=== PATIENT | female | born 1970 | race Caucasian/White ===

== ENCOUNTER → 2019-07-27 10:30 | Outpatient (BNVA) | payer SELFPAY | PROVIDERS: Visit Provider Nurse Practitioner Family | DX: Z00.00 Encounter for general adult medical examination without abnormal findings (principal); E03.9 Hypothyroidism, unspecified; Z13.6 Encounter for screening for cardiovascular disorders | CPT/HCPCS: 80053; 80061; 84439; 84443; 84481; 85025 ==

== ENCOUNTER 2019-08-24 09:18 | Day surgery (SDC) | payer MEDICAID, SELFPAY ==
[2019-08-22 11:32] VITALS: BMI 30.4
[2019-08-24 09:37] VITALS: BP 122/89; PULSE 81; RESP 18; TEMP 36.6; O2SAT 99
[2019-08-24] MEDS: sodium chloride 0.9% 1,000 ML 30 ML IV (09:47)
--- NOTE | 2019-08-24 10:03 | P.ANESASSM_ITS ---
Pre-Anesthetic Assessment Pre-Anesthetic Assessment: Height/Weight: Height 1.7 m Weight 87.997 kg Temp Pulse Resp BP Pulse Ox 97.8 F 81 18 122/89 99 08/24/19 09:37 08/24/19 09:37 08/24/19 09:37 08/24/19 09:37 08/24/19 09:37 Preop Diagnosis: Constipation Proposed Procedure: Operation Date: 08/24/19 10:30 Proposed Procedures p Colonoscopy 17526 K59.00(Not Applicable) - Shahriar Kapadia MD Was Beta Brenda taken within 24 hours: N/A Last intake: Intake Last Liquid Date 08/23/19 Last Liquid Time 20:00 Last Solid Date 08/22/19 Last Solid Time 18:00 Social: Social History: Tobacco Exam: Pre-Anes Outpt Exam: alert, oriented x 3, clear to auscultation bilaterally and regular rate & rhythm Airway: Submandibular: WNL Cervical ROM: WNL MP: 1 History/ROS: No significant history except as noted Pulmonary: Pulmonary: None reported CV/HEM: CV/HEM: None reported : : None reported Hepatic: Hepatic: None reported GI: GI: GERD Comments: Hemorrhoids Metabolic: Metabolic: Thyroid Musc/skel: Musc/skel: None reported Neuropsych: Neuropsych: None reported Anesthetic Plan: ASA status: 2 Anesthesia: MAC Meds/Allergies Current Medications: Current Medications Generic Name Dose Route Start Last Admin Trade Name Freq PRN Reason Stop Dose Admin Sodium Chloride 1,000 mls @ 30 ml s/hr 08/24/19 09:45 08/24/19 09:47 Sodium Chloride 0.9% IV 08/25/19 09:44 30 mls/hr .Q24H DARSHANA Administration PFSH Anesthesia PFSH: Medical History Hypothyroidism Family History Mother Diabetes Father Stroke Other Cancer Denies family history of Anesthesia complication Bleeding disorder Social History Smoking and tobacco status: never smoked Alcohol intake: current Alcohol intake frequency: holidays/special occasions only Adopted: No Caregiver/support person: Yes Lives independently: Yes Household members: children Housing: House Marital status: / service: No Current occupational status: previously employed Pets and animals: No History of recent travel: No Current gender identity: Female Caitlin/Gnosticist: Scientologist Financial difficulty paying for basics: Not Applicable Data Anesthesia Cardiac Studies: No Data to Display
--- NOTE | 2019-08-24 10:11 | W.PM.OPSUD ---
Surgery/Procedure H&P Update DATE OF PROCEDURE: August 24, 2019 DATE H&P PERFORMED: 08/11/19 H&P UPDATE INFORMATION: I have reviewed H&P completed within last 30 days, I have examined patient prior to procedure and No changes to prior documentation PREOP DIAGNOSIS: Constipation PRIMARY INDICATION FOR PROCEDURE: The same PLANNED PROCEDURE: Operation Date: 08/24/19 10:30 Proposed Procedures p Colonoscopy 62070 K59.00(Not Applicable) - Shahriar Kapadia MD
[2019-08-24 10:56] VITALS: BP 110/77; PULSE 84; RESP 16; TEMP 36.2; O2SAT 100
[2019-08-24 11:11] VITALS: BP 113/69; PULSE 72; RESP 18; TEMP 36.4; O2SAT 99
== END 2019-08-24 11:30 | disposition home or self-care (01) ==
PROVIDERS: Visit Provider Surgery
PROC: 0DJD8ZZ Inspection of Lower Intestinal Tract, Via Natural or Artificial Opening Endoscopic (ICD-10-PCS; CPT 45378; principal; 2019-08-24 10:30)
DX: K59.09 Other constipation (principal); E03.9 Hypothyroidism, unspecified; K21.9 Gastro-esophageal reflux disease without esophagitis; Z83.3 Family history of diabetes mellitus; Z82.3 Family history of stroke
CPT/HCPCS: 12345; 45378; J2704; J7030

== ENCOUNTER → 2019-12-22 00:01 | Outpatient (BNVA) | payer SELFPAY | PROVIDERS: Visit Provider Family Medicine | DX: E03.9 Hypothyroidism, unspecified (principal); L71.9 Rosacea, unspecified; Z71.89 Other specified counseling | CPT/HCPCS: 84443 ==

== ENCOUNTER → 2020-08-28 10:16 | Outpatient (BNVA) | payer MEDICAID, SELFPAY | PROVIDERS: Visit Provider Family Medicine | DX: E03.9 Hypothyroidism, unspecified (principal) | CPT/HCPCS: 80053; 84443; 85025 ==

== ENCOUNTER → 2021-08-30 12:10 | Outpatient (BNVA) | payer OTHER, SELFPAY | PROVIDERS: PCP Family Medicine; Visit Provider Family Medicine | DX: E03.9 Hypothyroidism, unspecified (principal); M62.838 Other muscle spasm; E07.9 Disorder of thyroid, unspecified | CPT/HCPCS: 80053; 83735; 84443 ==

== ENCOUNTER → 2021-12-05 13:10 | Outpatient (BNVA) | payer OTHER, SELFPAY | PROVIDERS: PCP Family Medicine; Visit Provider Nurse Practitioner Family | DX: R03.0 Elevated blood-pressure reading, without diagnosis of hypertension (principal); E03.9 Hypothyroidism, unspecified | CPT/HCPCS: 80053; 80061; 82607; 83735; 84439; 84443; 84481; 85025; 85651; 86038; 86140; 86200; 86376; 86431 ==

== ENCOUNTER 2021-12-25 09:24 | Emergency (ER) | payer OTHER, SELFPAY ==
[2021-12-25 09:30] VITALS: BP 162/106; PULSE 70; RESP 18; TEMP 36.6; O2SAT 98; BMI 29.3
--- NOTE | 2021-12-25 09:41 | PC.NURSE ---
pt reports she took synthroid and then began having hives and facial swelling. pt denies dyspnea. pt respirations even and unlabored, pt's left side of her face noted to be swollen. No abnormal airway noises. Self maintained, patent airway. face appears flushed. able to speak in complete sentences without difficulty. pt reports she took 25mg Benadryl on way to ER.
--- NOTE | 2021-12-25 09:48 | W.ED.ALLEREA ---
HPI - Allergic Reaction General: Chief complaint: Allergic Reaction Stated complaint: allergic reaction Time Seen by Provider: 12/25/21 09:26 Source: patient Mode of arrival: ambulatory History of Present Illness: HPI narrative: 51 yo female presents emergency room with swelling in her upper lip and on her face particularly on the left side. She denies any difficulty breathing she did take some oral Benadryl prior to arrival. She had just taken a first dose of levothyroxine and then this began overnight. She not had any difficulty breathing or swallowing or speaking. MD complaint: allergic reaction Onset (ago): hour(s) Exposure: medication Known history of allergy to: [place] Thyroid Associated symptoms: Reports facial swelling, itching and lip swelling; Deny abdominal pain, difficulty breathing, dysphagia, dizziness, hoarseness, nausea, rash, tongue swelling or vomiting Severity: moderate Treatment prior to arrival: benadryl Previous Allergic Reaction History: none Review of Systems Const: Denies: fever(s), chills, body aches, change in appetite, fatigue or malaise ENMT: Denies: hoarseness Card: Denies: chest pain, edema, dyspnea on exertion or orthopnea Resp: Denies: dyspnea, productive cough or non-productive cough GI: Denies: abdominal pain, nausea, vomiting or dysphagia : Denies: flank pain, difficulty voiding, dysuria, urinary frequency or urinary urgency Skin/Breast: Denies: rash or pruritus Neuro: Denies: dizziness All/Imm: Reports: facial swelling; Denies: tongue swelling PFSH ED PFSH: Medical History Hypothyroidism Hypothyroidism Family History Mother Diabetes Father Stroke Other Cancer Denies family history of Anesthesia complication Bleeding disorder Social History Smoking and tobacco status: never smoked Alcohol intake: current Alcohol intake frequency: holidays/special occasions only Adopted: No Caregiver/support person: Yes Lives independently: Yes Household members: children Housing: House Marital status: / service: No Current occupational status: previously employed Pets and animals: No History of recent travel: No Current gender identity: Female Caitlin/Mu-Ism: Mandaeism Financial difficulty paying for basics: Not Applicable Physical Exam Const: COMMON NORMALS: no acute distress GENERAL APPEARANCE: cooperative and comfortable ORIENTATION/CONSCIOUSNESS: Yes awake, Yes oriented to person, Yes oriented to place and Yes oriented to time HENMT: COMMON NORMALS: normocephalic, atraumatic, hearing grossly normal bilaterally, external ears normal, EAC's normal, TM's normal bilaterally, Normal nasal mucous membranes and turbinates present, moist oral mucous membranes and oropharynx normal HEAD & SCALP: normocephalic and atraumatic NOSE: Normal nasal mucous membranes and turbinates present EXTERNAL EAR: Yes external ears normal EXTERNAL AUDITORY CANAL: EAC's normal TYMPANIC MEMBRANE: TM's normal bilaterally OTHER: Left upper lip swelling and fullness as well as some to the left side of the face. No stridor no tongue swelling Eye: COMMON NORMALS: Equal, round and reactive pupils present, EOMs intact bilaterally, conjunctivae normal and no scleral icterus CONJUNCTIVA: Yes conjunctivae normal PUPIL: Yes Equal, round and reactive pupils present Neck/C-Spine: COMMON NORMALS: full ROM, no lymphadenopathy, supple and no JVD Resp: COMMON NORMALS: normal respiratory effort, No retractions, No use of accessory muscles and clear to auscultation bilaterally AUSCULTATION: clear to auscultation bilaterally Cardio: COMMON NORMALS: no JVD, regular rate, regular rhythm and No murmurs present (Cardio) RATE: regular rate RHYTHM: regular rhythm GI: COMMON NORMALS: Soft to palpation and No hepatosplenomegaly present AUSCULTATION: Yes normoactive bowel sounds PALPATION: Yes Soft to palpation, No Tenderness to palpation present (GI), No Guarding due to palpation present (GI) and Yes No hepatosplenomegaly present Extremity: COMMON NORMALS: normal to inspection, capillary refill normal, no clubbing, cyanosis or edema, no calf tenderness and no pedal edema Neuro: SENSORIUM/ORIENTATION: Yes oriented to person, Yes oriented to place and Yes oriented to time Skin: COMMON NORMALS: no rashes or lesions noted GENERAL SKIN EXAM: no rashes or lesions noted Course Vital Signs: Vital signs: Vital Signs Temperature 98 F 12/25/21 09:30 Pulse Rate 77 12/25/21 11:43 Respiratory Rate 16 12/25/21 11:43 Blood Pressure 123/93 12/25/21 11:43 Pulse Oximetry 97 11/16/22 11:43 Oxygen Delivery Me thod 12/25/21 11:43 MDM - Allergic Reaction Medical Decision Making Improved after treatment with steroids and Benadryl. Discharge patient on steroid taper follow-up with primary care or endocrinology for further options on thyroid replacement. Medical Records I reviewed the patient's medical records. Lab Data I reviewed the patient's lab results. Discharge Plan Discharge Patient Disposition: Home Clinical Impression: Allergic reaction Condition: Stable Prescriptions: New prednisone 20 mg tablet 20 mg PO TID Qty: 15 0RF Rx Instructions: 1 p.o. 3 times daily x3 days, 1 p.o. twice daily x2 days, 1 p.o. daily x2 days No Action levothyroxine [Synthroid] 137 mcg tablet 137 mcg PO DAILY Qty: 30 2RF Benadryl 25 mg Capsule 25 mg PO .ONCE Discharge Orders: Discharge ED (Routine); Ordered 12/25/21 Ordered By: Rex Christiansen Referrals: Sarah Curran MD [Primary Care Provider] - Patient Instructions: Opioid Safety, Pain Management Activity Restrictions/Additional Instructions: Stop levothyroxine. Prednisone taper as prescribed above follow-up with your primary care doctor or endocrinology for reevaluation of thyroid replacement. Coding Level of Care Code ED Therapy Assistant for Wendy Todd
[2021-12-25] MEDS: diphenhydrAMINE 50 mg/mL SDV 1mL IVP (09:58)
[2021-12-25] MEDS: famotidine 20 mg/2 mL INJ 40 MG IVP (10:00)
[2021-12-25] MEDS: dexamethasone 10 mg/mL INJ IVP (10:03)
[2021-12-25 11:43] VITALS: BP 123/93; PULSE 77; RESP 16; O2SAT 97
== END 2021-12-25 11:45 | disposition home or self-care (01) ==
PROVIDERS: Emergency Provider Family Medicine; PCP Family Medicine
DX: T78.40XA Allergy, unspecified, initial encounter (principal)
CPT/HCPCS: 96374; 96375; 99284; J1100; J1200; J3490

== ENCOUNTER → 2022-01-10 15:33 | Outpatient (BNVA) | payer OTHER, SELFPAY | PROVIDERS: PCP Family Medicine; Visit Provider Nurse Practitioner Family | DX: J06.9 Acute upper respiratory infection, unspecified (principal); R30.0 Dysuria | CPT/HCPCS: 81000; 87400 ==

== ENCOUNTER 2022-01-21 15:42 | Outpatient (CLI) | payer OTHER, SELFPAY ==
--- NOTE | 2022-01-21 16:00 | US_ITS ---
WS: [id number] THYROID ULTRASOUND HISTORY: E03.9 - Hypothyroidism, unspecified COMPARISON: None available. Right lobe: 0.6 cm x 0.8 cm x 2.7 cm (w x ap x l). Volume: 0.7 cm3. Small heterogeneous, echogenic thyroid lobe. No nodule or echogenic foci. Left lobe: 0.8 cm x 0.5 cm x 1.9 cm (w x ap x l). Volume: 0.4 cm3. Small echogenic heart is visualized thyroid. No echogenic foci or mass. No increased vascularity. Isthmus: 0.2 cm. Very superficial cyst associated with the LEFT submandibular gland measures 5 x 4 mm. No enlarged cer vical chain lymph nodes. US/US thyroid 54429 IMPRESSION: 1. Small atrophied echogenic thyroid. 2. No thyroid nodules or echogenic foci.
== END 2022-01-21 15:43 | disposition home or self-care (01) ==
PROVIDERS: PCP Family Medicine; Visit Provider Nurse Practitioner Family
DX: E03.9 Hypothyroidism, unspecified (principal); E03.4 Atrophy of thyroid (acquired)
CPT/HCPCS: 76536; 80053; 80061; 82607; 83735; 84439; 84443; 84481; 85025; 85651; 86038; 86140; 86200; 86376; 86431

== ENCOUNTER 2022-01-28 12:23 | Emergency (ER) | payer OTHER, SELFPAY ==
[2022-01-28 12:55] VITALS: BP 152/101; PULSE 71; RESP 15; TEMP 36.5; O2SAT 96
[2022-01-28] MEDS: famotidine 20 mg Tablet 40 MG PO (13:27)
[2022-01-28] MEDS: diphenhydrAMINE 50 mg/mL SDV 1mL IM (13:28)
[2022-01-28] MEDS: dexamethasone 10 mg/mL INJ 4 MG IM (13:30)
[2022-01-28 14:43] LABS: Amphetamines Screen Urine Negative (Negative); Barbiturates Screen Urine Negative (Negative); Benzodiazepines Screen Urine Negative (Negative); Cocaine Screen Urine Negative (Negative); Opiate Screen Urine Negative (Negative); PCP Screen Urine Negative (Negative); THC Screen Urine Negative (Negative)
--- NOTE | 2022-01-28 15:59 | ED_ITS ---
Documented by User: SHARI Sterling 01/28/22 19:50 HPI - Allergic Reaction General: Chief complaint: Allergic Reaction Stated complaint: possible allergic reaction Time Seen by Provider: 01/28/22 13:04 History of Present Illness: HPI narrative: Patient presents today for allergic reaction. She reports that she has been on thyroid medication since she was 18 years old. She reports that she was on Synthroid started having an allergic reaction to the Synthroid and developing a rash. She reports that she was taken off of Synthroid and placed on [place] Thyroid and she had swelling of her lips and tongue. She reports that she was seen in the ER and placed on steroids for that. She reports that she is continuing to have off-and-on rash. She stopped her steroids 1 week ago. She has been off all thyroid replacement for 2 months according to the patient. She does have an upcoming appointment to establish care with plastics design engineer on 12 February. She is in today because she has a rash and is itching everywhere. Review of Systems Const: Denies: fever(s), chills or body aches ENMT: Denies: swelling of lips/tongue Card: Denies: chest pain or palpitations Resp: Denies: dyspnea, productive cough or non-productive cough Skin/Breast: Reports: rash and pruritus PFSH ED PFSH: Medical History History of wrist fracture (~2018) Hypothyroidism Hypothyroidism Surgical History History of bilateral tubal ligation History of Hx of colonoscopy 2020 Family History Mother Diabetes Father Stroke Other Cancer Denies family history of Anesthesia complication Bleeding disorder Social History Smoking and tobacco status: never smoked Alcohol intake: current Alcohol intake frequency: holidays/special occasions only Adopted: No Caregiver/support person: Yes Lives independently: Yes Household members: children Housing: House Marital status: / service: No Current occupational status: previously employed Pets and animals: No History of recent travel: No Current gender identity: Female Caitlin/Restoration: Restorationism Financial difficulty paying for basics: Not Applicable Physical Exam Const: COMMON NORMALS: no acute distress, patient oriented x3 and alert OTHER: Patient is scratching bilateral wrists and hands. Patient is fidgety. Patient is a poor historian HENMT: THROAT: posterior oropharynx normal and uvula midline Neck/C-Spine: COMMON NORMALS: no JVD Resp: COMMON NORMALS: normal respiratory effort, No use of accessory muscles and clear to auscultation bilaterally AUSCULTATION: clear to auscultation bilaterally Cardio: COMMON NORMALS: no JVD, regular rate, regular rhythm, S1 normal heart sound present and S2 normal heart sound present RATE: regular rate RHYTHM: regular rhythm HEART SOUNDS: S1 normal heart sound present and S2 normal heart sound present Neuro: COMMON NORMALS: patient oriented x3 SENSORIUM/ORIENTATION: Yes alert Skin: NARRATIVE SKIN EXAM: Patient with pinpoint scabbed lesions and raised red lesions on face and bilateral wrist. Patient with hive-like lesions on upper abdomen. Course ED course: 1500?called and asked to speak with Dr. Alonso, plastics design engineer. Cardiovascular Rn advised that they would have the doctor return my phone call. 1558?spoke with Dr. Alonso. Advised her of patient's HPI and current TSH. Dr. Alonso recommends Tirosint medication and to keep her follow-up on 12 February. She recommends free T4 level and TSH prior to her appointment. Vital Signs: Vital signs: Vital Signs Temperature 97.7 F 01/28/22 12:55 Pulse Rate 68 01/28/22 16:00 Respiratory Rate 14 01/28/22 16:00 Blood Pressure 142/89 01/28/22 16:00 Pulse Oximetry 99 01/28/22 16:00 Oxygen Delivery Me thod 01/28/22 16:00 MDM - Allergic Reaction Medical Decision Making Patient is in today for what she believes is an allergic reaction to thyroid medication. Patient reports being off all thyroid replacement hormone for 2 months. Looks like patient was seen mid December in the ER and diagnosed with allergic reaction. Patient finished steroids approximately 1 week ago per her. Patient TSH is checked today and is 264.5. UDS done as well given patient fidgety behavior with rash. I called and spoke with Dr. Alonso, plastics design engineer. She recommends starting Tirosint medication for thyroid replacement as it does not have the preservatives and dyes that the other medications have. She recommends add a free T4 level prior to the patient's upcoming appointment on the fourth to evaluate effectiveness of the Tirosint. Discussed this plan with the patient. Order for case management to refer for outpatient free T4 and TSH prior to her upcoming appointment. Return to the ER for any new or worsening symptoms. I will go ahead and send patient home with a burst of steroid again to help with allergic reaction symptoms. Lab Data Laboratory Results TSH 264.50 uIU/mL (0.27-4.20) H 01/28/22 13:37 Urine Opiates Screen Negative ng/mL (Negative) 01/28/22 13:58 Ur Barbiturates Screen Negative ng/mL (Negative) 01/28/22 13:58 Ur Phencyclidine Scrn Negative ng/mL (Negative) 01/28/22 13:58 Ur Amphetamines Screen Negative ng/mL (Negative) 01/28/22 13:58 U Benzodiazepines Scrn Negative ng/mL (Negative) 01/28/22 13:58 Urine Cocaine Screen Negative ng/mL (Negative) 01/28/22 13:58 U Marijuana (THC) Screen Negative ng/mL (Negative) 01/28/22 13:58 Discharge Plan Discharge Patient Disposition: Home Clinical Impression: Hypothyroidism, Allergic reaction Condition: Stable Prescriptions: New prednisone 20 mg tablet 40 mg PO DAILY 5 Days Qty: 10 0RF Tirosint 25 mcg capsule 25 mcg PO DAILY Qty: 14 0RF No Action ibuprofen 200 mg tablet 200 mg PO Q6H PRN cephalexin 500 mg tablet 500 mg PO TID 10 Days Qty: 30 0RF prednisone 10 mg tablets,dose pack See Rx Instructions PO PER PKG DIR Qty: 21 0RF Rx Instructions: PO PER PKG DIR Benadryl 25 mg Capsule 25 mg PO .ONCE Discharge Orders: Discharge ED (Routine); Ordered 01/28/22 Ordered By: Yoli Mancia Referrals: Sarah Curran MD [Primary Care Provider] - Discharge Diet: Usual diet Discharge Activity: Resume usual activity Patient Instructions: Allergic Reaction, Hypothyroidism (ED) Activity Restrictions/Additional Instructions: Make sure to keep your follow-up appointment with Dr. Alonso on the fourth. Start taking medications prescribed in the ER tomorrow on 01/29/2022. Make sure to get follow-up labs prior to your appointment on the fourth. Return to the emergency department for any new or worsening symptoms, difficulty breathing, swelling of the mouth throat lips or tongue. Coding Level of Care Code ED Chemical Production Engineer for Chg Fwd Exam Detailed Documented by User: Rex Christiansen DO 01/30/22 06:44 HPI - Allergic Reaction General: Chief complaint: Allergic Reaction Stated complaint: possible allergic reaction Time Seen by Provider: 01/28/22 13:04 PFSH ED PFSH: Medical History History of wrist fracture (~2018) Hypothyroidism Hypothyroidism Surgical History History of bilateral tubal ligation History of Hx of colonoscopy 2020 Family History Mother Diabetes Father Stroke Other Cancer Denies family history of Anesthesia complication Bleeding disorder Social History Smoking and tobacco status: never smoked Alcohol intake: current Alcohol intake frequency: holidays/special occasions only Adopted: No Caregiver/support person: Yes Lives independently: Yes Household members: children Housing: House Marital status: / service: No Current occupational status: previously employed Pets and animals: No History of recent travel: No Current gender identity: Female Caitlin/Restoration: Restorationism Financial difficulty paying for basics: Not Applicable Course Vital Signs: Vital signs: Vital Signs Temperature 97.7 F 01/28/22 12:55 Pulse Rate 68 01/28/22 16:00 Respiratory Rate 14 01/28/22 16:00 Blood Pressure 142/89 01/28/22 16:00 Pulse Oximetry 99 01/28/22 16:00 Oxygen Delivery Me thod 01/28/22 16:00 MDM - Allergic Reaction Medical Decision Making Patient is in today for what she believes is an allergic reaction to thyroid medication. Patient reports being off all thyroid replacement hormone for 2 months. Looks like patient was seen mid December in the ER and diagnosed with allergic reaction. Patient finished steroids approximately 1 week ago per her. Patient TSH is checked today and is 264.5. UDS done as well given patient fidgety behavior with rash. I called and spoke with Dr. Alonso, plastics design engineer. She recommends starting Tirosint medication for thyroid replacement as it does not have the preservatives and dyes that the other medications have. She recommends add a free T4 level prior to the patient's upcoming appointment on the fourth to evaluate effectiveness of the Tirosint. Discussed this plan with the patient. Order for case management to refer for outpatient free T4 and TSH prior to her upcoming appointment. Return to the ER for any new or worsening symptoms. I will go ahead and send patient home with a burst of steroid again to help with allergic reaction symptoms. Chart reviewed and patient discussed with midlevel. Agree with assessment and plan. Lab Data Laboratory Results TSH 264.50 uIU/mL (0.27-4.20) H 01/28/22 13:37 Urine Opiates Screen Negative ng/mL (Negative) 01/28/22 13:58 Ur Barbiturates Screen Negative ng/mL (Negative) 01/28/22 13:58 Ur Phencyclidine Scrn Negative ng/mL (Negative) 01/28/22 13:58 Ur Amphetamines Screen Negative ng/mL (Negative) 01/28/22 13:58 U Benzodiazepines Scrn Negative ng/mL (Negative) 01/28/22 13:58 Urine Cocaine Screen Negative ng/mL (Negative) 01/28/22 13:58 U Marijuana (THC) Screen Negative ng/mL (Negative) 01/28/22 13:58 Discharge Plan Discharge Patient Disposition: Home Clinical Impression: Hypothyroidism, Allergic reaction Condition: Stable Prescriptions: New prednisone 20 mg tablet 40 mg PO DAILY 5 Days Qty: 10 0RF Tirosint 25 mcg capsule 25 mcg PO DAILY Qty: 14 0RF No Action ibuprofen 200 mg tablet 200 mg PO Q6H PRN cephalexin 500 mg tablet 500 mg PO TID 10 Days Qty: 30 0RF prednisone 10 mg tablets,dose pack See Rx Instructions PO PER PKG DIR Qty: 21 0RF Rx Instructions: PO PER PKG DIR Benadryl 25 mg Capsule 25 mg PO .ONCE Discharge Orders: Discharge ED (Routine); Ordered 01/28/22 Ordered By: Yoli Mancia Referrals: Sarah Curran MD [Primary Care Provider] - Discharge Diet: Usual diet Discharge Activity: Resume usual activity Patient Instructions: Allergic Reaction, Hypothyroidism (ED) Activity Restrictions/Additional Instructions: Make sure to keep your follow-up appointment with Dr. Alonso on the fourth. Start taking medications prescribed in the ER tomorrow on 01/29/2022. Make sure to get follow-up labs prior to your appointment on the fourth. Return to the emergency department for any new or worsening symptoms, difficulty breathing, swelling of the mouth throat lips or tongue. Coding Level of Care Code ED Chemical Production Engineer for Chg Fwd Exam Detailed
[2022-01-28 16:00] VITALS: BP 142/89; PULSE 68; RESP 14; O2SAT 99
--- NOTE | 2022-01-29 10:23 | DCPLANNER ---
retail business manager had message to schedule some outpatient blood work for patient. retail business manager called the office of Dr. Alonso, spoke with front load trash truck driver staff, asked if the clinic could put in the order for patient to have blood work completed before patients appointment. retail business manager was told that she would let the nurse know, and that clinic will call patient.
== END 2022-01-28 16:22 | disposition home or self-care (01) ==
PROVIDERS: Emergency Provider Nurse Practitioner Family; PCP Family Medicine
DX: L27.0 Generalized skin eruption due to drugs and medicaments taken internally (principal); T38.1X5A Adverse effect of thyroid hormones and substitutes, initial encounter; E03.9 Hypothyroidism, unspecified
CPT/HCPCS: 80306; 84443; 96372; 99284; J1100; J1200

== ENCOUNTER 2022-01-29 11:30 | Outpatient (CLI) | payer OTHER, SELFPAY ==
[2022-01-29 13:01] LABS: Free T4 Free Thyroxine 0.29 ng/dL (0.82-1.77)
== END 2022-01-29 11:31 | disposition home or self-care (01) ==
LOC: LAB 11:34
PROVIDERS: PCP Family Medicine; Visit Provider Internal Medicine
DX: E03.9 Hypothyroidism, unspecified (principal)
CPT/HCPCS: 36415; 84439; 84443

== ENCOUNTER → 2022-02-11 09:06 | Outpatient (BNVA) | payer OTHER, SELFPAY | PROVIDERS: PCP Family Medicine; Visit Provider Internal Medicine | DX: E03.9 Hypothyroidism, unspecified (principal) | CPT/HCPCS: 84439 ==

== ENCOUNTER 2022-02-26 12:13 | Outpatient (CLI) | payer OTHER, SELFPAY ==
[2022-02-26 13:09] LABS: Free T4 Free Thyroxine 0.67 ng/dL (0.82-1.77); Thyroid Stimulating Hormone 33.64 uIU/mL (0.27-4.20)
[2022-02-27 05:44] LABS: T3 Total 107 ng/dL (76-181)
[2022-02-27 17:15] LABS: Thyroid Peroxidase Antobodies <1 IU/mL (<9)
[2022-02-27 17:45] LABS: Thyroglobulin AB <1 IU/mL (< or = 1)
== END 2022-02-26 12:14 | disposition home or self-care (01) ==
LOC: LAB 12:15
PROVIDERS: PCP Family Medicine; Visit Provider Internal Medicine
DX: E03.9 Hypothyroidism, unspecified (principal)
CPT/HCPCS: 36415; 84439; 84443; 84480; 86376; 86800

== ENCOUNTER 2022-03-21 09:53 | Outpatient (CLI) | payer OTHER, SELFPAY ==
[2022-03-21 10:53] LABS: Free T4 Free Thyroxine 0.35 ng/dL (0.82-1.77)
[2022-03-23 07:10] LABS: T3 Total 76 ng/dL (76-181)
== END 2022-03-21 09:54 | disposition home or self-care (01) ==
LOC: LAB 09:56
PROVIDERS: PCP Family Medicine; Visit Provider Internal Medicine
DX: E03.9 Hypothyroidism, unspecified (principal)
CPT/HCPCS: 36415; 84439; 84443; 84480

== ENCOUNTER 2022-03-28 09:24 | Outpatient (CLI) | payer OTHER, SELFPAY ==
[2022-03-28 11:03] LABS: Free T4 Free Thyroxine 0.53 ng/dL (0.82-1.77)
== END 2022-03-28 09:25 | disposition home or self-care (01) ==
LOC: LAB 09:26
PROVIDERS: PCP Family Medicine; Visit Provider Internal Medicine
DX: E03.9 Hypothyroidism, unspecified (principal)
CPT/HCPCS: 36415; 84439

== ENCOUNTER 2022-04-18 09:35 | Emergency (ER) | payer OTHER, SELFPAY ==
[2022-04-18 09:39] VITALS: BP 173/90; PULSE 82; RESP 16; TEMP 36.7; O2SAT 98
[2022-04-18 11:28] VITALS: BP 146/106; RESP 16; O2SAT 98
--- NOTE | 2022-04-18 11:47 | W.ED.GENADLT ---
Documented by User: [email or web address] Serrano 04/19/22 07:14 HPI - General Adult General: Chief complaint: General Medical Stated complaint: allergic reaction Time Seen by Provider: 04/18/22 09:36 History of Present Illness: Patient is a 51-year-old female comes to the ED elevated blood pressure. Patient states that her blood pressures have been elevated for the past 4 months. Yesterday she had a blood pressure approximately 140/80. She sees a primary care doctor that she has not been started on a blood pressure medication yet. Patient also has thyroid disease and is currently seeing the paper sample clerk to manage that. Denies any other symptoms. Patient has an appointment with her PCP in about a month. Associated symptoms: Deny chest pain, dyspnea, headache(s), nausea, rash, palpitations or vomiting Review of Systems Const: Denies: fever(s), chills or fatigue Eyes: Denies: change in vision or eye discomfort ENMT: Denies: throat pain, odynophagia, nasal discharge or nasal congestion Card: Denies: chest pain, palpitations, edema, swelling of feet/ankles, dyspnea on exertion or orthopnea Resp: Denies: dyspnea, productive cough or non-productive cough GI: Denies: abdominal pain, nausea, vomiting, diarrhea, constipation or hematochezia : Denies: flank pain, dysuria or hematuria Musc: Denies: neck pain, back pain or extremity swelling Skin/Breast: Denies: rash or new lesions Neuro: Denies: headache(s), numbness in extremities or weakness in extremities PFS ED PFSH: Medical History History of wrist fracture (~2018) Hypothyroidism Hypothyroidism Surgical History History of bilateral tubal ligation History of Hx of colonoscopy 2020 Family History Mother Diabetes Father Stroke Other Cancer Denies family history of Anesthesia complication Bleeding disorder Social History Smoking and tobacco status: never smoked Alcohol intake: current Alcohol intake frequency: holidays/special occasions only Adopted: No Caregiver/support person: Yes Lives independently: Yes Household members: children Housing: House Marital status: / service: No Current occupational status: previously employed Pets and animals: No Current gender identity: Female Caitlin/Buddhist: Bahai Financial difficulty paying for basics: Not Applicable Physical Exam Const: COMMON NORMALS: no acute distress, patient oriented x3, healthy appearing and alert HENMT: COMMON NORMALS: normocephalic HEAD & SCALP: normocephalic MOUTH: Normal oral and palatal mucosa present THROAT: posterior oropharynx normal and uvula midline Neck/C-Spine: COMMON NORMALS: supple GENERAL: Yes normal visual inspection Resp: COMMON NORMALS: normal respiratory effort, No retractions, No use of accessory muscles and clear to auscultation bilaterally AUSCULTATION: clear to auscultation bilaterally Cardio: COMMON NORMALS: regular rate, regular rhythm, S1 normal heart sound present, S2 normal heart sound present, No gallops present (Cardio), No clicks present (Cardio), No murmurs present (Cardio) and Peripheral pulses 2+ throughout RATE: regular rate RHYTHM: regular rhythm HEART SOUNDS: S1 normal heart sound present and S2 normal heart sound present PERIPHERAL PULSES: Peripheral pulses 2+ throughout GI: COMMON NORMALS: Normal to inspection, nondistended, normoactive bowel sounds present, Soft to palpation, non-tender and no masses PALPATION: Yes Soft to palpation : COMMON NORMALS: Yes no CVA tenderness BLADDER/KIDNEY EXAM: Yes no CVA tenderness Back/Pelvis: COMMON NORMALS: no CVA tenderness Extremity: COMMON NORMALS: normal to inspection Neuro: COMMON NORMALS: patient oriented x3 SENSORIUM/ORIENTATION: Yes alert GAIT: Yes Normal gait present Skin: GENERAL SKIN EXAM: dry skin Course Vital Signs: Vital signs: Vital Signs Temperature 98.1 F 04/18/22 09:39 Pulse Rate 82 04/18/22 09:39 Respiratory Rate 16 04/18/22 11:28 Blood Pressure 146/106 04/18/22 11:28 Pulse Oximetry 98 04/18/22 11:28 Oxygen Delivery Me thod 04/18/22 11:28 [facility] - General Adult Medical Decision Making Patient is a 51-year-old female comes to the ED elevated blood pressure. Patient states that her blood pressures have been elevated for the past 4 months. She sees a primary care doctor that she has not been started on a blood pressure medication yet. Patient also has thyroid disease and is currently seeing the paper sample clerk to manage that. Denies any other symptoms. Patient has an appointment with her PCP in about a month.Blood pressures here in the ED 173/90 and 146/106. Rest of her vitals are stable. Exam is benign and patient appears nontoxic in no acute distress or pain. BMP was unremarkable and creatinine is normal at 0.6. Patient diagnosed with hypertension and was discharged home with a prescription for lisinopril hydrochlorothiazide. Told to follow-up with her PCP at her next scheduled appointment to discuss blood pressure medication management. Return to ED precautions given. Patient understood and agreed with plan. Lab Data I reviewed the patient's lab results. 04/18/22 12:18 Laboratory Results Sodium 135 mmol/L (136-145) L 04/18/22 12:18 Potassium 3.5 mmol/L (3.5-5.1) 04/18/22 12:18 Chloride 98 mmol/L (98-107) 04/18/22 12:18 Carbon Dioxide 25 mmol/L (22-29) 04/18/22 12:18 Anion Gap 15.5 (5-19) 04/18/22 12:18 BUN 8 mg/dL (6-20) 04/18/22 12:18 Creatinine 0.6 mg/dL (0.5-0.9) 04/18/22 12:18 GFR Calculation 106.3 mL/min (90-130) 04/18/22 12:18 Glucose 90 mg/dL (65-115) 04/18/22 12:18 Calculated Osmolality 278 mOsm/kg (285-295) L 04/18/22 12:18 Calcium 9.1 mg/dL (8.5-10.5) 04/18/22 12:18 Discharge Plan Discharge Patient Disposition: Home Clinical Impression: Hypertension Qualifiers: Hypertension type: primary hypertension Qualified Code(s): I10 - Essential (primary) hypertension Condition: Stable Prescriptions: New lisinopril-hydrochlorothiazide 10-12.5 mg tablet 1 tab PO DAILY Qty: 30 0RF No Action ibuprofen 200 mg tablet 200 mg PO Q6H PRN prednisone 20 mg tablet 20 mg PO .COMPLEX Qty: 15 0RF Rx Instructions: 20 mg orally TAKE ONE TABLET BY MOUTH THREE TIMES DAILY FOR THREE DAYS, THEN 1 TWICE DAILY FOR TWO DAYS, THEN ONE DAILY FOR TWO DAYS; levothyroxine [Synthroid] 25 mcg tablet 25 mcg PO DAILY Qty: 90 3RF doxycycline hyclate 100 mg tablet 100 mg PO BID 60 Days Qty: 60 1RF Rx Instructions: Take one tablet, by mouth, twice a day for 2 months. Benadryl 25 mg Capsule 25 mg PO .ONCE Discharge Orders: Discharge ED (Routine); Ordered 04/18/22 Ordered By: Dirk Bains Referrals: AIDEN SOTO MD [Primary Care Provider] - Discharge Diet: Regular Discharge Activity: Resume usual activity Patient Instructions: Hypertension (ED) Activity Restrictions/Additional Instructions: Follow-up with PCP at your next scheduled appointment. Take medications as prescribed. Return to the ER or your medical provider if condition worsens. Please read and understand discharge instructions. Thank you for choosing [facility] for your healthcare needs today. Please realize this is an emergency room and that we are providing you with a medical screening exam and this may not be complete and all inclusive of all the testing and or work up that you may need to determine your ailment or severity of your illness. It is very important that you follow up as instructed or that you return to the Emergency Department should you have concerns or if your condition changes or worsens in any way. Coding Level of Care Code ED Cosmetic Maker for [employer]g [employer] Documented by User: Rex Christiansen DO 04/22/22 06:16 HPI - General Adult General: Chief complaint: General Medical Stated complaint: allergic reaction Time Seen by Provider: 04/18/22 09:36 [facility] PFSH: Medical History History of wrist fracture (~2018) Hypothyroidism Hypothyroidism Surgical History History of bilateral tubal ligation History of Hx of colonoscopy 2020 Family History Mother Diabetes Father Stroke Other Cancer Denies family history of Anesthesia complication Bleeding disorder Social History Smoking and tobacco status: never smoked Alcohol intake: current Alcohol intake frequency: holidays/special occasions only Adopted: No Caregiver/support person: Yes Lives independently: Yes Household members: children Housing: House Marital status: / service: No Current occupational status: previously employed Pets and animals: No Current gender identity: Female Caitlin/Buddhist: Bahai Financial difficulty paying for basics: Not Applicable Course Vital Signs: Vital signs: Vital Signs Temperature 98.1 F 04/18/22 09:39 Pulse Rate 82 04/18/22 09:39 Respiratory Rate 16 04/18/22 11:28 Blood Pressure 146/106 04/18/22 11:28 Pulse Oximetry 98 04/18/22 11:28 Oxygen Delivery Me thod 04/18/22 11:28 MDM - General Adult Medical Decision Making Patient is a 51-year-old female comes to the ED elevated blood pressure. Patient states that her blood pressures have been elevated for the past 4 months. She sees a primary care doctor that she has not been started on a blood pressure medication yet. Patient also has thyroid disease and is currently seeing the paper sample clerk to manage that. Denies any other symptoms. Patient has an appointment with her PCP in about a month.Blood pressures here in the ED 173/90 and 146/106. Rest of her vitals are stable. Exam is benign and patient appears nontoxic in no acute distress or pain. BMP was unremarkable and creatinine is normal at 0.6. Patient diagnosed with hypertension and was discharged home with a prescription for lisinopril hydrochlorothiazide. Told to follow-up with her PCP at her next scheduled appointment to discuss blood pressure medication management. Return to ED precautions given. Patient understood and agreed with plan. Chart reviewed and patient discussed with midlevel. Agree with assessment and plan. Lab Data 04/18/22 12:18 Laboratory Results Sodium 135 mmol/L (136-145) L 04/18/22 12:18 Potassium 3.5 mmol/L (3.5-5.1) 04/18/22 12:18 Chloride 98 mmol/L (98-107) 04/18/22 12:18 Carbon Dioxide 25 mmol/L (22-29) 04/18/22 12:18 Anion Gap 15.5 (5-19) 04/18/22 12:18 BUN 8 mg/dL (6-20) 04/18/22 12:18 Creatinine 0.6 mg/dL (0.5-0.9) 04/18/22 12:18 GFR Calculation 106.3 mL/min (90-130) 04/18/22 12:18 Glucose 90 mg/dL (65-115) 04/18/22 12:18 Calculated Osmolality 278 mOsm/kg (285-295) L 04/18/22 12:18 Calcium 9.1 mg/dL (8.5-10.5) 04/18/22 12:18 Discharge Plan Discharge Patient Disposition: Home Clinical Impression: Hypertension Qualifiers: Hypertension type: primary hypertension Qualified Code(s): I10 - Essential (primary) hypertension Condition: Stable Prescriptions: New lisinopril-hydrochlorothiazide 10-12.5 mg tablet 1 tab PO DAILY Qty: 30 0RF No Action ibuprofen 200 mg tablet 200 mg PO Q6H PRN prednisone 20 mg tablet 20 mg PO .COMPLEX Qty: 15 0RF Rx Instructions: 20 mg orally TAKE ONE TABLET BY MOUTH THREE TIMES DAILY FOR THREE DAYS, THEN 1 TWICE DAILY FOR TWO DAYS, THEN ONE DAILY FOR TWO DAYS; levothyroxine [Synthroid] 25 mcg tablet 25 mcg PO DAILY Qty: 90 3RF doxycycline hyclate 100 mg tablet 100 mg PO BID 60 Days Qty: 60 1RF Rx Instructions: Take one tablet, by mouth, twice a day for 2 months. Benadryl 25 mg Capsule 25 mg PO .ONCE Discharge Orders: Discharge ED (Routine); Ordered 04/18/22 Ordered By: Dirk Bains Referrals: AIDEN SOTO MD [Primary Care Provider] - Discharge Diet: Regular Discharge Activity: Resume usual activity Patient Instructions: Hypertension (ED) Activity Restrictions/Additional Instructions: Follow-up with PCP at your next scheduled appointment. Take medications as prescribed. Return to the ER or your medical provider if condition worsens. Please read and understand discharge instructions. Thank you for choosing [facility] for your healthcare needs today. Please realize this is an emergency room and that we are providing you with a medical screening exam and this may not be complete and all inclusive of all the testing and or work up that you may need to determine your ailment or severity of your illness. It is very important that you follow up as instructed or that you return to the Emergency Department should you have concerns or if your condition changes or worsens in any way. Coding Level of Care Code ED Cosmetic Maker for Wendy Todd
[2022-04-18 12:46] LABS: Blood Urea Nitrogen 8 mg/dL (6-20); Calcium 9.1 mg/dL (8.5-10.5); Carbon Dioxide 25 mmol/L (22-29); Chloride 98 mmol/L (98-107); Glomerular Filtration Rate 106.3 mL/min (90-130); Glucose 90 mg/dL (65-115); Osmolality Calculated 278 mOsm/kg (285-295); Sodium 135 mmol/L (136-145)
[2022-04-18 12:55] LABS: Anion Gap 15.5 (5-19); Potassium 3.5 mmol/L (3.5-5.1)
== END 2022-04-18 13:20 | disposition home or self-care (01) ==
PROVIDERS: Emergency Provider Physician Assistant; PCP Internal Medicine Nephrology
DX: I10 Essential (primary) hypertension (principal); E03.9 Hypothyroidism, unspecified
CPT/HCPCS: 80048; 99283

== ENCOUNTER → 2022-08-20 14:51 | Outpatient (BNVA) | payer OTHER, SELFPAY | PROVIDERS: PCP Family Medicine; Visit Provider Nurse Practitioner Family | DX: E03.9 Hypothyroidism, unspecified (principal); N93.9 Abnormal uterine and vaginal bleeding, unspecified | CPT/HCPCS: 80053; 80061; 83001; 84439; 84443; 84481; 85025; 86376 ==

== ENCOUNTER 2022-08-27 14:24 | Outpatient (CLI) | payer OTHER, SELFPAY ==
--- NOTE | 2022-08-27 15:30 | XR_ITS ---
WS: [id number] SCREENING DEXA SCAN [employer] CLINICAL INFORMATION: Z78.0 - Asymptomatic menopausal state COMPARISON: None. FINDINGS: The L1-L4 bone mineral density measures 1.351 g/cm2. This corresponds to a T score score of 1.4 and Z score of 1.0. Left femoral neck bone mineral density measures 1.294 g/cm2. This corresponds to a T score of 2.3 and Z score of 2.2. Right femoral neck bone mineral density measures 1.287 g/cm2. This corresponds to a T score 2.2of and Z score of 2.1. Mean femoral neck bone mineral density measures 1.290 g/cm2. This corresponds to a T score of 2.2 and Z score of 2.1. XR/XR DEXA axial skeleton* [id number] IMPRESSION: Normal bone mineralization. Patient's FRAX calculated 10 year probability for major osteoporotic fracture i s 11.7 % and osteoporotic hip fracture is 0.0%.
== END 2022-08-27 14:25 | disposition home or self-care (01) ==
LOC: RAD 14:26
PROVIDERS: PCP Family Medicine; Visit Provider Nurse Practitioner Family
DX: Z78.0 Asymptomatic menopausal state (principal)
CPT/HCPCS: 77080; 80053; 80061; 83001; 84439; 84443; 84481; 85025; 86376

== ENCOUNTER → 2024-02-15 10:00 | Outpatient (BNVA) | payer BC, MEDICAID, SELFPAY | PROVIDERS: Visit Provider Nurse Practitioner Family | DX: Z13.6 Encounter for screening for cardiovascular disorders (principal); E03.9 Hypothyroidism, unspecified | CPT/HCPCS: 80053; 80061; 82607; 83735; 84443; 85025 ==

== ENCOUNTER 2024-02-29 07:36 | Outpatient (CLI) | payer BC, SELFPAY ==
--- NOTE | 2024-02-29 08:00 | US_ITS ---
WS: [id number] RIGHT UPPER QUADRANT ULTRASOUND HISTORY: R74.8 - Abnormal levels of other serum enzymes COMPARISON: None available. Liver: 18.0 cm in length. Liver is measuring top normal size with mild coarse echotexture. No mass. Portal Vein: Normal hepatopetal flow with monophasic waveform. Gallbladder: Mildly contracted gallbladder. No stones. No pericholecystic fluid or gallbladder wall t hickening. CBD: 0.3 cm Pancreas: Normal size and echogenicity. Right kidney: 9.6 cm in length. Normal size and echogenicity. No hydronephrosis or mass. Aorta and IVC: Unremarkable abdominal aorta and IVC. No ascites. US/US liver [id number] IMPRESSION: 1. Slightly contracted gallbladder with no stones. No gallbladder wall thicken ing. 2. Top normal size liver with mild hepatic steatosis.
== END 2024-02-29 07:37 | disposition home or self-care (01) ==
LOC: RAD 07:39
PROVIDERS: Visit Provider Nurse Practitioner Family
DX: R74.8 Abnormal levels of other serum enzymes (principal); R93.3 Abnormal findings on diagnostic imaging of other parts of digestive tract; K76.0 Fatty (change of) liver, not elsewhere classified; R93.2 Abnormal findings on diagnostic imaging of liver and biliary tract
CPT/HCPCS: 76705

== ENCOUNTER 2024-03-24 07:19 | Outpatient (CLI) | payer BC, MEDICAID, SELFPAY ==
--- NOTE | 2024-03-24 08:00 | NM_ITS ---
WS: [id number] NUCLEAR MEDICINE HIDA SCAN WITH GALLBLADDER EJECTION FRACTION HISTORY: K82.0 - Obstruction of gallbladder COMPARISON: RIGHT upper quadrant 02/29/2024 TECHNIQUE: The patient was intravenously injected with 8.6 mCi of TC99m Mebrofenin. Immediate imaging over the right upper quadrant was followed by 5 minute image and additional images for a total of 60 minutes. Normal uptake of radiotracer throughout the liver. Liver appears slightly enlarged. Activity identified in the gallbladder at 15 minutes and well distended by 60 minutes. Activity in the proximal small bowel was seen by 10 minutes. Good washout of the radiotracer from the liver by 60 minutes. The patient then drank 8 ounces of Ensure Plus. Ejection fraction at 60 minutes was 62%. Normal GB ejection fraction is 35-75%. Post fatty meal symptoms: None. NM/NM hepatobiliary w phar* [id number] IMPRESSION: 1. Normal HIDA scan. 2. Normal gallbladder ejection fraction.
== END 2024-03-24 07:20 | disposition home or self-care (01) ==
LOC: RAD 07:20
PROVIDERS: PCP Nurse Practitioner Family; Visit Provider Nurse Practitioner Family
DX: K82.0 Obstruction of gallbladder (principal)
CPT/HCPCS: 78227; A9537

== ENCOUNTER 2024-04-20 12:00 | Outpatient (CLI) | payer BC, MEDICAID, SELFPAY | END 2024-04-20 12:01 | disposition home or self-care (01) | LOC: LAB 04-22 07:57 | PROVIDERS: PCP Nurse Practitioner Family; Visit Provider Nurse Practitioner Family | DX: E03.9 Hypothyroidism, unspecified (principal) | CPT/HCPCS: 80053; 84439; 84443; 85025 ==

== ENCOUNTER 2024-05-02 07:31 | Outpatient (CLI) | payer BC, MEDICAID, SELFPAY ==
--- NOTE | 2024-05-02 08:00 | US_ITS ---
WS: [id number] THYROID ULTRASOUND HISTORY: E04.9 - Nontoxic goiter, unspecified COMPARISON: 01/21/2022 No identifiable thyroid tissue is present. Thyroid was very small and echogenic noted on the prior ultrasound from 2019. Strap muscles noted but no adjacent thyroid tissue. No history of prior surgery. No lymphadenopathy. Visualized submandibular glands are normal. US/US thyroid [id number] IMPRESSION: 1. No identifiable thyroid tissue noted in the thyroid bed. No history of prio r surgery. Suspect severe atrophy involution of the thyroid gland. 2. No cervical chain adenopathy.
--- NOTE | 2024-05-02 08:30 | US_ITS ---
WS: [id number] Complete ABDOMINAL ULTRASOUND HISTORY: K46.9 - Unspecified abdominal hernia without obstruction ... COMPARISON: 02/29/2024 Liver: 18.6 cm in length. Top normal to slightly enlarged liver similar to the prior study. Coarse echotexture. No mass identified. Portal Vein: Normal hepatopetal flow with monophasic waveform. Gallbladder: Normally distended gallbladder with no stones or wall thickening. CBD: 0.3 cm Pancreas: As visualized unremarkable. Right kidney: 10.4 cm x 4.9 x 5.6 cm. Cortex:0.9 cm. Normal size and echogenicity. No hydronephrosis or mass. Left kidney: 10.1 cm x 4.9 cm x 5.1 cm. Cortex: 0.9 cm. Normal size and echogenicity. No hydronephrosis or mass. Spleen: 10.4 cm. Normal size and echogenicity. Aorta and IVC: Unremarkable abdominal aorta and IVC. Ultrasound is performed around the umbilicus in the area directed by the patient for possible hernia. No herniation of bowel is identified. If there is continued concern for abdominal wall hernia consider follow-up CT. US/US abdomen complete* [id number] Impression: 1. Slightly enlarged liver with hepatic steatosis. Similar to the prior exam o f 02/29/2024. 2. Negative gallbladder. 3. Negative kidneys. 4. No ventral abdominal wall hernia identified.
== END 2024-05-02 07:32 | disposition home or self-care (01) ==
LOC: RAD 07:32
PROVIDERS: PCP Nurse Practitioner Family; Visit Provider Nurse Practitioner Family
DX: K46.9 Unspecified abdominal hernia without obstruction or gangrene (principal); E04.9 Nontoxic goiter, unspecified; R93.89 Abnormal findings on diagnostic imaging of other specified body structures
CPT/HCPCS: 76536; 76700; 80053; 84439; 84443; 85025

== ENCOUNTER 2024-05-05 17:32 | Emergency (ER) | payer BC, MEDICAID, SELFPAY ==
[2024-05-05 17:43] VITALS: BP 187/108; PULSE 79; RESP 15; TEMP 36.8; O2SAT 98; BMI 34.0
--- NOTE | 2024-05-05 18:33 | W.ED.ALLEREA ---
HPI - Allergic Reaction General: Chief complaint: Allergic Reaction Stated complaint: breaking out eyes blurry right worse Time Seen by Provider: 05/05/24 18:22 Source: patient Mode of arrival: ambulatory Limitations: no limitations History of Present Illness: HPI narrative: 53yo Female presents with concern of an allergic reaction. Patient reports that she has had allergic reaction due to her thyroid medication. States that they have tried multiple types of thyroid medication, but she continues to have the rash. Patient states she is now concerned that is going to her eye. Reports that she has had blurred vision in the right eye for the past several months, but became concerned today as she is starting to have blurred vision in the left eye. Patient attributes the blurred vision to her allergic reaction. Patient states that she has been using an [id number] eyedrop with a purple lid that is supposed to get the redness out, but it has not seemed to help. She has not yet seen an eye doctor. Patient denies fever, chills, body aches, any other concern at this time. Associated symptoms: Deny vomiting Related Data Home Medications ?Medication ?Instructions ?Recorded ?Confirmed ibuprofen 200 mg tablet 200 mg PO Q6H PRN 01/10/22 04/20/24 Previous Rx's ?Medication ?Instructions ?Recorded tizanidine 4 mg tablet 4 mg PO BID PRN muscle spasticity 04/20/24 #30 tabs levothyroxine 88 mcg tablet 88 mcg PO DAILY #90 tabs 04/21/24 (Synthroid) erythromycin 5 mg/gram (0.5 %) eye 1 applic ophthalmic (eye) QID #3.5 05/05/24 ointment (3.5 gram tube) grams metronidazole 0.75 % topical gel 1 applic topical BID #45 grams 05/05/24 Allergies Allergy/AdvReac Type Severity Reaction Status Date / Time thyroid, pork (From [place] Allergy Severe ALGY-Swell Verified 08/20/22 15:26 Thyroid) Lip/Tongue/Throat levothyroxine Allergy ALGY-Hives Verified 08/20/22 15:26 codeine AdvReac ADR-Vomitin Verified 08/20/22 15:26 g Review of Systems Const: Denies: fever(s), chills or body aches Eyes: Reports: blurry vision Card: Denies: chest pain Resp: Denies: dyspnea GI: Denies: vomiting Skin/Breast: Reports: rash (face) Psych: Reports: memory loss PFSH ED PFSH: Medical History History of wrist fracture (~2018) Hypothyroidism Hypothyroidism Surgical History History of History of bilateral tubal ligation Hx of colonoscopy 2020 Family History Mother Diabetes Father Stroke Other Cancer Denies family history of Anesthesia complication Bleeding disorder Social History Smoking and tobacco/nicotine status: never used tobacco/nicotine Alcohol intake: current Alcohol intake frequency: holidays/special occasions only Substance/Drug Use: never Adopted: No Caregiver/support person: Yes Lives independently: Yes Household members: children Housing: House Marital status: / service: No Current occupational status: previously employed Pets and animals: No Do you think of yourself as: Straight/Heterosexual Current gender identity: Female Caitlin/Holiness: Zoroastrianism Physical Exam Const: COMMON NORMALS: no acute distress, patient oriented x3 and alert GENERAL APPEARANCE: cooperative ORIENTATION/CONSCIOUSNESS: Yes awake OTHER: Patient is sitting upright on the side of the stretcher no acute distress. She is able to give history with no difficulty. She is interactive with exam appropriately. No family is at bedside HENMT: FACE & SINUS: erythema bilaterally maxilla Eye: CONJUNCTIVA: Yes conjunctival abnormal positive right conjunctival injection; without chemosis, without discharge and without subconjunctival hemmorhages Neck/C-Spine: COMMON NORMALS: full ROM Resp: COMMON NORMALS: normal respiratory effort Neuro: COMMON NORMALS: patient oriented x3 SENSORIUM/ORIENTATION: Yes alert Course ED course: Visual acuity: Right eye 20/70: Left eye 20/30 Vital Signs: Vital signs: Vital Signs Temperature 98.2 F 05/05/24 17:43 Pulse Rate 88 05/05/24 19:17 Respiratory Rate 18 05/05/24 19:17 Blood Pressure 180/114 05/05/24 19:17 Pulse Oximetry 98 05/05/24 19:17 Oxygen Delivery Me thod Room Air 05/05/24 19:17 MDM - Allergic Reaction Medical Decision Making 53yo Female presents with concern of an allergic reaction. Patient reports that she has had allergic reaction due to her thyroid medication. States that they have tried multiple types of thyroid medication, but she continues to have the rash. Patient states she is now concerned that is going to her eye. Reports that she has had blurred vision in the right eye for the past several months, but became concerned today as she is starting to have blurred vision in the left eye. Patient attributes the blurred vision to her allergic reaction. Patient states that she has been using an [id number]-edr-rdgqsid eyedrop with a purple lid that is supposed to get the redness out, but it has not seemed to help. She has not yet seen an eye doctor. Patient denies fever, chills, body aches, any other concern at this time. Patient is nontoxic in appearance. Vital signs are stable. Visual acuity does show decreased vision in the right eye. Concern for conjunctivitis noted on exam. 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 Patient is emphatic that the rash is related to her allergy to her thyroid medication, not rosacea. Patient is agreeable to use metronidazole gel for her facial rash, but refuses to take any doxycycline as was previously prescribed. A referral was placed to ophthalmology for further evaluation of her vision changes. Recommend she follow-up as soon as possible. Advised to follow-up with primary care for her facial rash. Return precautions provided. Patient states understanding and has no further questions or concerns at this time. Medical Records I reviewed the patient's medical records. Chart review reveals patient was evaluated by dermatology on 03/21/2022 for the rash to her face. They did proceed with a biopsy that returned as pustular rosacea. She was prescribed doxycycline at that time, but there is no follow-up visit noted in her chart. No radiology studies performed this visit Discharge Plan Discharge Patient Disposition: Home Clinical Impression: Blurred vision, right eye, Facial rash Acute conjunctivitis of right eye Qualifiers: Acute conjunctivitis type: unspecified Qualified Code(s): H10.31 - Unspecified acute conjunctivitis, right eye Condition: Stable Prescriptions: New erythromycin 5 mg/gram (0.5 %) ointment 1 applic ophthalmic (eye) QID Qty: 3.5 0RF metronidazole 0.75 % gel 1 applic topical BID Qty: 45 0RF No Action tizanidine 4 mg tablet 4 mg PO BID PRN (Reason: muscle spasticity) Qty: 30 0RF ibuprofen 200 mg tablet 200 mg PO Q6H PRN levothyroxine [Synthroid] 88 mcg tablet 88 mcg PO DAILY Qty: 90 0RF Discharge Orders: Discharge ED (Routine); Ordered 05/05/24 Ordered By: Rohith Petty Referrals: Fauzia Rizzo FNP [Primary Care Provider] - Discharge Diet: Usual diet Discharge Activity: Resume usual activity Activity Restrictions/Additional Instructions: A referral to ophthalmology has been placed for follow-up of the blurred vision Erythromycin ointment has been sent to your pharmacy to begin treatment of the conjunctivitis of the right eye Metronidazole gel has been sent to the pharmacy to apply to your face twice daily to help with the rash Follow-up with ophthalmology as soon as possible for evaluation of the blurred vision Follow-up with primary care as soon as possible for further evaluation of the facial rash Return to the emergency department if any rapid worsening symptoms and as needed Print Language: [place]dean Coding Level of Care Code ED Blind Escort for Wendy Todd
[2024-05-05 19:17] VITALS: BP 180/114; PULSE 88; RESP 18; O2SAT 98
--- NOTE | 2024-05-05 19:21 | PC.NURSE ---
r eye 20/70 l eye 20/30
[2024-05-05] MEDS: erythromycin Op Oint 1 gm 1 APPLIC EYE-RIGHT (19:43)
[2024-05-05 19:50] VITALS: BP 166/107; PULSE 88; RESP 16; O2SAT 98
--- NOTE | 2024-05-05 20:04 | DCPLANNER ---
Referral sent to [facility]
== END 2024-05-05 19:39 | disposition home or self-care (01) ==
PROVIDERS: Emergency Provider Nurse Practitioner; PCP Nurse Practitioner Family
DX: R21 Rash and other nonspecific skin eruption (principal); H10.31 Unspecified acute conjunctivitis, right eye
CPT/HCPCS: 99283; J9999

== ENCOUNTER 2024-05-19 09:30 | Outpatient (CLI) | payer BC, MEDICAID, SELFPAY ==
--- NOTE | 2024-05-19 09:32 | XR_ITS ---
WS: [id number] Exam: XR thoracic spine 3V* [id number] Date/Time of Exam: 05/19/2024 9:32 AM Reason For Exam: M54.6 - Pain in thoracic spine No fracture or malalignment. Slight spondylosis. Minimal levoscoliosis. Normal paraspinal soft tissues. XR/XR thoracic spine 3V* [id number] IMPRESSION: 1. Slight spondylosis and minimal scoliosis otherwise negative T-spine study.
--- NOTE | 2024-05-19 09:32 | XR_ITS ---
WS: [id number] Exam: XR lumbar spine 2-3V* [id number] Date/Time of Exam: 05/19/2024 9:32 AM Reason For Exam: M54.50 - Low back pain, unspecified No acute fracture. Degenerative vacuum disc at L4-5 and mild spondylosis. Remaining disc spaces are preserved. Mild levoscoliosis. Posterior elements are intact. XR/XR lumbar spine 2-3V* [id number] IMPRESSION: 1. No fracture or malalignment. 2. Degenerative vacuum disc at L4-5. Mild spondylosis..
== END 2024-05-19 09:31 | disposition home or self-care (01) ==
LOC: RAD 09:31
PROVIDERS: PCP Nurse Practitioner Family; Visit Provider Nurse Practitioner Family
DX: M51.369 Other intervertebral disc degeneration, lumbar region without mention of lumbar back pain or lower extremity pain (principal); M47.896 Other spondylosis, lumbar region; M41.86 Other forms of scoliosis, lumbar region
CPT/HCPCS: 72072; 72100